=== PATIENT | female | born 1950 | race Caucasian/White ===

== ENCOUNTER 2017-12-11 08:49 | Emergency (ER) | payer BC, MEDICARE ==
[~2017-12-11] VITALS: Ht 152.4 cm; Wt 102.3 kg
[~2017-12-11 08:49] MED LIST: 00186-0370-20 IH; ADVIL 200MG TA200 MG PO; ALBUTEROL SULFAT3 M3 IH; ALBUTEROL0.09 MG/A1 IH; ALBUTEROL1.25 MG/3 IH; ALLEGRA 60MG TA60 MG PO; ALLOPURINOL100 MG PO; ASPIRIN 32325 MG/TAB PO; BENICAR; BENICAR 20MG TA20 MG PO; BENICAR40 MG PO; CARAFATE 1GM1 G PO; CARDIZEM CD 24240 MG PO; CARDIZEM120 MG PO; CEPHALEXIN500 M1 PO; CIPRO 500MG TA500 MG PO; CLARITIN 1010 MG/TAB PO; COMPLETE SENIOR1 TA1 PO; DONNATAL TABLET1 TAB PO; FLOVENT 44MCG I13 GM IH; GI COCKTAIL; HCTZ 25MG TAB25 MG PO; HCTZ 25MG25 MG PO; HYTRIN 2MG CAPSU2 MG PO; HYTRIN10 M1 PO; JANUVIA 100MG100 MG PO; LEVAQUIN 5500 MG/TA1 PO; LIPITOR 10MG10 MG PO; LOPRESSOR 225 MG/TAB PO; LORTAB 5/500 501 TAB PO; LORTAB 7.5/5001 TAB PO; LUNESTA2 MG PO; METAMUCIL3.4 GM/DOS PO; MOTRIN 800800 MG/TAB PO; MUCINEX DM 30 M1 TE1 PO; MULTI VITAMINS1 TAB PO; MULTIPLE VITAMI1 CAP PO; NORCO 325 MG-51 TAB PO; NORCO PO; ONE DAILY1 TA1 PO; PEPCID 20MG TAB20 MG PO; PERCOCET 325 MG1 TA2 PO; PHENERGAN W/CO120 M1 PO; PREDNISONE10 MG PO; PREDNISONE20 MG PO; PRILOSEC 20MG20 MG PO; PRILOTC PO; PROBIOTIC FORMU1 CAP PO; PULMICORT0.5 MG/21 IH; PULMICORT180 MCG/Ac IH; SINGULAIR 110 MG/TAB PO; SKELAXIN400 MG PO; SYNTHROID 0.0.025 MG PO; SYNTHROID0.175 MG PO; SYNTHROID0.2 MG/TAB PO; TESSALON P100 MG/CAP PO; TESSALON PERLE200 MG PO; TIAZAC240 MG PO; TOPROL XL 50MG50 MG PO; VENTOLIN0.09 MG IH; WELCHOL 625MG625 MG PO; XYZOL; ZANTAC 150MG T150 MG PO; ZITHROMAX TRI-500 MG PO; ZITHROMAX Z PA250 MG PO; ZYLOPRIM 300MG300 MG PO; ZYRTEC 10MG10 MG PO
[2017-12-11 08:59] VITALS: BP 157/75; TEMP 98.1
[2017-12-11] MEDS ORDERED: ULTRAM 50MG TAB50 MG PO (09:57)
[2017-12-11 10:17] VITALS: PULSE 81
== END 2017-12-11 10:19 | disposition home or self-care (01) ==
LOC: COL.ER 08:49
DX: M25.561 Pain in right knee (principal)

== ENCOUNTER → 2018-01-06 | Outpatient (CLI) | payer BC ==
[~2018-01-06] MED LIST changes: +ULTRAM 50MG TAB50 MG PO
== END ==
LOC: COL.RAD 08:40
DX: S83.411D Sprain of medial collateral ligament of right knee, subsequent encounter (principal); S83.281A Other tear of lateral meniscus, current injury, right knee, initial encounter; M17.11 Unilateral primary osteoarthritis, right knee; M94.8X8 Other specified disorders of cartilage, other site

== ENCOUNTER → 2019-01-24 | Outpatient (CLI) | payer BC | LOC: MC.RAD 12:53 | DX: N63.22 Unspecified lump in the left breast, upper inner quadrant (principal) | CPT/HCPCS: G0279 ==

== ENCOUNTER → 2020-03-11 | Outpatient (CLI) | payer BC | LOC: MC.RAD 10:18 | DX: Z12.31 Encounter for screening mammogram for malignant neoplasm of breast (principal) ==

== ENCOUNTER → 2021-04-30 | Outpatient (CLI) | payer BC | LOC: MC.RAD 14:43 | DX: Z12.31 Encounter for screening mammogram for malignant neoplasm of breast (principal) ==

== ENCOUNTER 2022-03-24 09:58 | Day surgery (SDC) | payer BC ==
[~2022-03-24] VITALS: Ht 160 cm; Wt 97.6 kg
[2022-03-24 10:45] VITALS: BP 159/98; PULSE 91; TEMP 97.4
[2022-03-24] MEDS ORDERED: SINGULAIR 110 MG/TAB PO (10:57)
[2022-03-24] MEDS ORDERED: LIPITOR20 MG PO (10:58)
[2022-03-24] MEDS ORDERED: MICARDIS40 MG PO (10:58)
[2022-03-24] MEDS ORDERED: ZYRTEC 10MG10 MG PO (10:59)
[2022-03-24] MEDS ORDERED: CENTRUM SILVER1 CTB PO (10:59)
[2022-03-24] MEDS ORDERED: FISH OIL 500 M1 EAC1 (11:01)
[2022-03-24] MEDS ORDERED: 00186-0370-20 IH (11:01)
[2022-03-24] MEDS ORDERED: SYNTHROID 0.10.15 MG (11:02)
[2022-03-24] MEDS ORDERED: OZEMPIC1 MG/0.71 SQ (11:03)
[2022-03-24 12:17] VITALS: BP 157/83; PULSE 83
--- NOTE | 2022-03-24 12:17 | NUR ---
PATIENT RETURNS TO BAY [facility] PER CART AND IS AWAKE AND ALERT. TRANSFERS FROM CART TO RECLINER WITH TWO PERSON ASSIST. TEMP 98.4. IV FLUIDS INFUSING AND SITE IS FREE OF REDNESS OR SWELLING. SPOUSE IN ROOM. CALL LIGHT IN REACH. GIVEN PATIENCE CRACKERS AND AND WATER. DENIES ABDOMINAL PAIN OR NAUSEA.
[2022-03-24 12:32] VITALS: BP 131/76; PULSE 87
--- NOTE | 2022-03-24 12:32 | NUR ---
SIPPING ON WATER AND EATING CRACKERS. DENIES PAIN OR NAUSEA.
[2022-03-24 12:47] VITALS: BP 131/76; PULSE 87
--- NOTE | 2022-03-24 12:47 | NUR ---
TALKING WITH SPOUSE AND SIPPING WATER. CONTINUES TO DENY NAUSEA OR ABDOMINAL PAIN.
[2022-03-24 12:58] VITALS: BP 146/80; PULSE 79
--- NOTE | 2022-03-24 12:58 | NUR ---
DR. TURNER IN THE ROOM AND TALKING WITH PATIENT AND SPOUSE. ALL QUESTIONS ANSWERED.
--- NOTE | 2022-03-24 13:15 | NUR ---
IV DISCONTINUED AND SITE IS FREE OF REDNESS. PATIENT DRESSES SELF. SPOUSE REMAINS IN THE ROOM.
--- NOTE | 2022-03-24 13:29 | NUR ---
INSTRUCTIONS GIVEN AND SIGNED. PATIENT VOICES UNDERSTANDING OF THESE. ASSISTED INTO WHEELCHAIR AND TAKEN TO PER WHEELCHAIR TO PRIVATE VEHICLE DRIVEN BY SPOUSE AND DISMISSED TO HOME WITH INSTRUCTIONS IN HAND.
== END 2022-03-24 13:29 | disposition home or self-care (01) ==
LOC: SDCO 09:58
DX: Z12.11 Encounter for screening for malignant neoplasm of colon (principal); D12.3 Benign neoplasm of transverse colon; K57.30 Diverticulosis of large intestine without perforation or abscess without bleeding; K62.89 Other specified diseases of anus and rectum
CPT/HCPCS: J2704; J7030

== ENCOUNTER 2022-04-24 09:33 | Emergency (ER) | payer BC ==
[~2022-04-24] VITALS: Ht 160 cm; Wt 95.5 kg
[~2022-04-24 09:33] MED LIST changes: +CENTRUM SILVER1 CTB PO; +FISH OIL 500 M1 EAC1; +LIPITOR20 MG PO; +MICARDIS40 MG PO; +OZEMPIC1 MG/0.71 SQ; +SYNTHROID 0.10.15 MG
[2022-04-24 10:02] VITALS: TEMP 98.4
[2022-04-24 10:21] LABS: COLLECTION METHOD CLEAN CATCH
[2022-04-24 10:33] LABS: BASO # 0.1 K/mm3 (0.0-0.2); BASO % 0.7 % (0.0-2.0); EOS # 0.2 K/mm3 (0.0-0.7); EOS % 1.7 % (0.0-4.0); GRAN # 8.3 K/mm3 (1.4-6.5); GRAN % 71.1 % (42.2-75.2); HEMATOCRIT 41.4 % (37.0-47.0); HEMOGLOBIN 14.2 g/dl (12.5-16.0); LYMPH # 2.1 K/mm3 (1.2-3.4); LYMPH % 17.6 % (20.0-51.0); MEAN CELL VOLUME 86 fl (80.0-100.0); MEAN CORPUSCULAR HEMOGLOBIN 30 pg (27-31); MEAN CORPUSCULAR HGB CONC 34 g/dl (33.0-37.0); MEAN PLATELET VOLUME 9.6 fl (7.4-10.4); MONO % 8.6 % (1.7-9.3); PLATELET COUNT 271 K/mm3 (130-400); RED BLOOD COUNT 4.79 M/mm3 (4.10-5.30); REDCELL DISTRIBUTION WIDTH-CV 13.7 % (11.5-14.5)
[2022-04-24 10:48] LABS: ALBUMIN 4.1 gm/dL (3.4-4.8); BILIRUBIN,TOTAL 0.9 mg/dL (0.2-1.2); CALCIUM 9.7 mg/dL (8.4-10.2); CREATININE, serum 1.82 mg/dL (0.57-1.11); POTASSIUM 3.4 mmol/L (3.5-4.5); TOTAL PROTEIN 7.2 gm/dL (6.2-8.1)
[2022-04-24 12:26] LABS: MUCOUS Present (NOT PRESENT); URINE BACTERIA None Seen /hpf (NONE SEEN); URINE RBC >50 /hpf (0-2)
[2022-04-24 12:28] LABS: URINE APPEARANCE Hazy (CLEAR/HAZY); URINE COLOR Yellow (YELLOW); URINE GLUCOSE Negative (NEGATIVE); URINE KETONE TRACE (NEGATIVE); URINE NITRATE Negative (NEGATIVE); URINE PROTEIN(semi-quant) 1+ (NEGATIVE); URINE UROBILINOGEN 0.2 E.U/dL (0.2-1.0)
[2022-04-24 12:29] LABS: URINE BLOOD 3+ (NEGATIVE)
[2022-04-24] MEDS ORDERED: NORCO 325 MG-51 TAB PO (13:02)
[2022-04-24] MEDS ORDERED: ZOFRAN ODT4 MG PO (13:02)
[2022-04-24 13:10] VITALS: BP 144/83; PULSE 94
== END 2022-04-24 13:10 | disposition home or self-care (01) ==
LOC: COL.ER 09:33
PROVIDERS: Nurse Practitioner
DX: N13.2 Hydronephrosis with renal and ureteral calculous obstruction (principal)
CPT/HCPCS: J2405; J3010; J7030

== ENCOUNTER → 2022-05-04 | Outpatient (CLI) | payer BC ==
[~2022-05-04] MED LIST changes: +ZOFRAN ODT4 MG PO
== END ==
LOC: MC.RAD 08:06
DX: Z12.31 Encounter for screening mammogram for malignant neoplasm of breast (principal)

== ENCOUNTER → 2023-09-13 | Outpatient (CLI) | payer BC ==
[~2023-09-13] MED LIST changes: +CEFTIN500 MG PO; +ZOFRAN 4MG T4 MG/TAB PO
== END ==
LOC: MC.RAD 09:45
DX: Z12.31 Encounter for screening mammogram for malignant neoplasm of breast (principal)